=== PATIENT | female | born 1960 | race Caucasian/White ===

== ENCOUNTER → 2020-03-03 14:43 | Outpatient (CLI) | payer BC, SELFPAY ==
--- NOTE | ~2020-03-03 | XR_ITS ---
XR pelvis 1-2V DATE: 03/03/2020 14:57 INDICATION: Low back pain. Evaluate for ankylosing spondylitis. TECHNIQUE: AP pelvis COMPARISON: None FINDINGS: There is a prominent amount of fecal material in the cecum, ascending, transverse and desce nding colon. No bowel obstruction is evident. There is slight dextroscoliosis and mild degenerative spurring of the lumbar spine. The pubic symphysis and sacroiliac joints are intact. There is no evidence of erosive change or ankyl osis at the sacroiliac joints. Hip joint spaces are symmetric and relatively preserved. No pelvic fracture or bone destruction is detected. IMPRESSION: No radiographic evidence of ankylosing spondylitis Reviewed, dictated and finalized at location B. IAL PROCEDURES TECHNOLOGIST
== END ==
PROVIDERS: PCP Internal Medicine; Visit Provider Internal Medicine
DX: M47.816 Spondylosis without myelopathy or radiculopathy, lumbar region (principal); M41.9 Scoliosis, unspecified
CPT/HCPCS: 72170

== ENCOUNTER → 2020-03-07 10:55 | Outpatient (CLI) | payer BC, SELFPAY ==
--- NOTE | ~2020-03-07 | XR_ITS ---
XR lumbar spine 2-3V 03/07/2020 12:00 Indication: Low back pain Procedure: 3 views lumbar spine Comparison: No prior studies for comparison. Findings: Vertebral body heights are maintained. There is mild disc narrowing at L1-2 through L4-5. N o fracture or traumatic malalignment. No evidence for spondylolisthesis. There are mild facet degener ative changes of L5-S1. Impression: 1: Mild lumbar spondylosis. Reviewed, dictated and finalized at location A. HUNTER Impression: 1: Mild lumbar spondylosis.
== END ==
PROVIDERS: Visit Provider Internal Medicine
DX: M47.816 Spondylosis without myelopathy or radiculopathy, lumbar region (principal)
CPT/HCPCS: 72100

== ENCOUNTER 2020-04-25 13:05 | Outpatient (CLI) | payer BC, SELFPAY ==
[2020-04-28 11:53] LABS: Vitamin D 25 Hydroxy 47 ng/mL (30-100)
== END 2020-04-25 13:06 | disposition home or self-care (01) ==
LOC: CHSLAB 13:08
PROVIDERS: PCP Internal Medicine; Visit Provider Obstetrics & Gynecology
DX: E55.9 Vitamin D deficiency, unspecified (principal)
CPT/HCPCS: 36415; 82306

== ENCOUNTER 2022-05-23 14:06 | Outpatient (CLI) | payer BC, SELFPAY ==
[2022-05-23 15:14] LABS: Thyroid Stimulating Hormone Reflex 1.51 u/IU/mL (0.36-3.74)
== END 2022-05-23 14:07 | disposition home or self-care (01) ==
LOC: CHSLAB 14:11
PROVIDERS: Visit Provider Registered Nurse
DX: E04.9 Nontoxic goiter, unspecified (principal)
CPT/HCPCS: 36415; 84443

== ENCOUNTER 2022-05-28 10:46 | Outpatient (CLI) | payer BC, SELFPAY ==
--- NOTE | ~2022-05-28 | US_ITS ---
Thyroid ultrasound. Clinical History: Nontoxic goiter Findings: Real-time sonography of the thyroid gland was performed. The right lobe measures 3.8 x 1.5 x 1.6 cm. The left lobe measures 4.2 x 1.4 x 1.2 cm. The isthmus is 2 mm in AP diameter. Thyroid parenchyma is homogeneous. No discrete thyroid nodule identified. Impression: No significant abnormality seen.. Reviewed, dictated and finalized at [facility]. Y TECHNICIAN Impression: No significant abnormality seen..
== END 2022-05-28 10:47 | disposition home or self-care (01) ==
LOC: CHSIMG 10:49
PROVIDERS: PCP Obstetrics & Gynecology; Visit Provider Obstetrics & Gynecology
DX: E04.9 Nontoxic goiter, unspecified (principal)
CPT/HCPCS: 76536

== ENCOUNTER 2023-02-05 08:19 | Outpatient (CLI) | payer BC, SELFPAY ==
--- NOTE | ~2023-02-05 | US_ITS ---
EXAMINATION: US art doppler w press LE BI DATE: 02/05/2023 09:54 INDICATION: Peripheral arterial disease. TECHNIQUE: Segmental pressures and plethysmographic and Doppler waveforms of the brachial and lower e xtremity arteries were obtained. COMPARISON: None. FINDINGS: Right and left brachial artery pressures of 115 mm Hg and 97 mm Hg, respectively, are concordant (nor mal difference <= 30 mmHg). The right high-thigh pressure index is 1.24 (normal > 1.2). The right ankle-brachial index (GATO) is 1 .23 (normal >= 0.9-1.0). The right great toe-brachial index (TBI) is 0.45 (normal >= 0.65). Arterial Doppler waveforms are biphasic in common femoral artery, triphasic in superficial femoral artery, pop liteal artery, and dorsalis pedis, and biphasic in posterior tibial artery. The left high-thigh pressure index is 1.30. The left GATO is 1.30. The left TBI is 0.57. Arterial Dopp ler waveforms are biphasic in common femoral artery and triphasic from superficial femoral artery to the ankle. IMPRESSION: 1. Decreased TBIs and normal ABIs, consistent with arterial occlusive disease. Note that ABIs may be overestimated if arteries are calcified. Reviewed, dictated and finalized at location E.
== END 2023-02-05 08:20 | disposition home or self-care (01) ==
PROVIDERS: PCP Family Medicine; Visit Provider Podiatrist Foot & Ankle Surgery
DX: I73.9 Peripheral vascular disease, unspecified (principal)
CPT/HCPCS: 93923